=== PATIENT | female | born 1985 ===

== ENCOUNTER 2021-10-16 20:13 | Emergency (ER) | payer BC ==
[~2021-10-16] VITALS: Ht 172.7 cm; Wt 68.0 kg
--- NOTE | 2021-10-16 20:31 | NUR ---
pt BIB [facility] pt passesnger in vehicle. Positive ETOH. pt placed in rm 5B by RA. Upon transfering pt, pt minimally awakes. Dr. Lazaro aware of pt arrival. pt placed on monitor.
[2021-10-16] MEDS ORDERED: IV NORMAL SALINE 500 ML BAG IV ONE (20:45)
--- NOTE | 2021-10-16 21:08 | NUR ---
pt's relative, Rangel , came to visit. Dr. Lazaro at bedside to discuss treatment plan.
--- NOTE | 2021-10-16 22:28 | NUR ---
pt awakens to verbal, able to state name and states where she is. pt does not voice and pain. Dr. Lazaro at bedside to further exam the pt.
--- NOTE | 2021-10-17 00:25 | NUR ---
Patient discharged to home in stable condition. Written and verbal after care instructions given. Patient verbalizes understanding of instructions. Stressed follow up or return to ER for worsening s/s. pt ambulated with steady gait. denies pain. picked up by romina Alcantara
[2021-10-17 00:26] VITALS: BP 121/72
== END 2021-10-17 00:27 | disposition home or self-care (01) ==
LOC: ER 20:16
DX: F10.129 Alcohol abuse with intoxication, unspecified (principal)
CPT/HCPCS: A4663; J7030